=== PATIENT | female | born 1985 | race Caucasian/White ===

== ENCOUNTER 2023-11-09 14:39 | Emergency (ER) | payer OTHER ==
[2023-11-09 14:50] VITALS: BMI 23.8
[2023-11-09] MEDS: LACTATED RINGERS SOLUTION 1,000 ML IV SCH (15:30)
[2023-11-09] MEDS: ACETAMINOPHEN 1000 MG/100 ML BAG IVPB ONE (15:45)
[2023-11-09 16:23] LABS: EPI CELLS 36 /uL (0-25.1); HYALINE CASTS 3 /uL (0-3.1); URINE APPEARANCE CLOUDY; URINE BACTERIA >9,000 /uL (0-1359); URINE BILIRUBIN NEGATIVE (NEGATIVE); URINE COLOR YELLOW; URINE GLUCOSE (UA) NEGATIVE (NEGATIVE); URINE KETONE 1+ (NEGATIVE); URINE LEUK ESTERASE 3+ (NEGATIVE); URINE NITRITE POSITIVE (NEGATIVE); URINE PROTEIN 1+ (NEGATIVE); URINE RBC 36 /uL (0-23.9); URINE WBC 4000 /uL (0-25.8)
[2023-11-09 16:32] LABS: BASO % 0.1 % (0-2.0); EOS % 0.4 % (0-4.5); HEMATOCRIT 30.6 % (32.4-45.2); HEMOGLOBIN 10.5 GM/dL (10.7-15.3); LYMPH % 15.4 % (8-40); MCH 31.7 pg (25.7-33.7); MCHC 34.4 g/dl (32.0-36.0); MEAN CELL VOLUME 92.1 fl (80-96); MEAN PLT VOLUME 8.4 fl (7.5-11.1); MONO % 8.8 % (3.8-10.2); NEUT % 75.3 % (42.8-82.8); PLATELET COUNT 192 10^3/uL (134-434); RBC 3.33 M/mm3 (3.60-5.2); RDW 13.3 % (11.6-15.6); WHITE BLOOD COUNT 8.3 K/mm3 (4.0-10.0)
[2023-11-09] MEDS: CEFTRIAXONE 1 MG in DEXTROSE 5%-WATER - 50 ML IVPB ONE (16:52)
[2023-11-09 17:02] LABS: POTASSIUM 3.5 mmol/L (3.5-5.1)
[2023-11-09 17:03] LABS: CALCIUM 8.4 mg/dL (8.5-10.1)
[2023-11-09 17:04] LABS: BLOOD UREA NITROGEN 7.5 mg/dL (7-18)
[2023-11-09 17:07] LABS: CREATININE 0.4 mg/dL (0.55-1.3)
[2023-11-09] MEDS: CEFTRIAXONE 1 GM in DEXTROSE 5%-WATER - 50 ML IVPB ONE (17:20)
[2023-11-09 18:15] VITALS: BP 103/63; PULSE 64; RESP 16; TEMP 98.6
== END 2023-11-09 18:30 | disposition home or self-care (01) ==
LOC: JER 14:39 → JLDR 16:15 → JER 16:15
PROC: 3E03329 Introduction of Other Anti-infective into Peripheral Vein, Percutaneous Approach (ICD-10-PCS; principal; 2023-11-09)
PROC: 3E033NZ Introduction of Analgesics, Hypnotics, Sedatives into Peripheral Vein, Percutaneous Approach (ICD-10-PCS; 2023-11-09)
DX: O09.521 Supervision of elderly multigravida, first trimester (principal); O26.892 Other specified pregnancy related conditions, second trimester; R10.31 Right lower quadrant pain; O99.891 Other specified diseases and conditions complicating pregnancy; M54.50 Low back pain, unspecified; Z3A.22 22 weeks gestation of pregnancy
CPT/HCPCS: 36415; 80048; 81003; 85025; 87086; 87186; 99284-25; J0131

== ENCOUNTER 2024-02-12 06:25 | Inpatient (IN) | payer OTHER ==
[2024-02-12] MEDS ORDERED: AMPICILLIN SODIUM 2 GM VIAL ONE (07:24)
[2024-02-12] MEDS ORDERED: BETAMET ACET/BETAMET NA PH 30 MG/5 ML VIAL ONE (07:24)
[2024-02-12] MEDS: ELECTROLYTE-148 SOLN 500 ML IV ONE (07:35)
[2024-02-12] MEDS: AMPICILLIN - 2 GM in SODIUM CHLORIDE 100 ML IVPB SCH (07:40)
[2024-02-12 08:16] LABS: BASO % 0.3 % (0-2.0); EOS % 2.9 % (0-4.5); HEMATOCRIT 34.8 % (32.4-45.2); HEMOGLOBIN 11.6 GM/dL (10.7-15.3); LYMPH % 22.7 % (8-40); MCH 31.3 pg (25.7-33.7); MCHC 33.4 g/dl (32.0-36.0); MEAN CELL VOLUME 93.7 fl (80-96); MEAN PLT VOLUME 9.1 fl (7.5-11.1); MONO % 7.4 % (3.8-10.2); NEUT % 66.7 % (42.8-82.8); PLATELET COUNT 202 10^3/uL (134-434); RBC 3.72 M/mm3 (3.60-5.2); RDW 13.6 % (11.6-15.6); WHITE BLOOD COUNT 8.7 K/mm3 (4.0-10.0)
[2024-02-12 08:26] LABS: INR 1.04 (0.83-1.09); PROTHROMBIN TIME (PATIENT) 11.9 SEC (9.7-13.0)
[2024-02-12 08:38] LABS: POTASSIUM 3.9 mmol/L (3.5-5.1)
[2024-02-12 08:39] LABS: BLOOD UREA NITROGEN 10.6 mg/dL (7-18); CALCIUM 8.4 mg/dL (8.5-10.1)
[2024-02-12 08:43] LABS: CREATININE 0.5 mg/dL (0.55-1.3)
[2024-02-12] MEDS: ELECTROLYTE-148 SOLN 1,000 ML IV SCH (09:00)
[2024-02-12 09:52] VITALS: BMI 27.2
[2024-02-12] MEDS: BETAMET ACET/BETAMET NA PH 30 MG/5 ML VIAL IM SCH (10:28)
[2024-02-12] MEDS ORDERED: AMPICILLIN SODIUM 1 GM VIAL ONE (12:17)
[2024-02-12 12:19] LABS: HIV INTERPRETATION NEGATIVE (NEGATIVE)
[2024-02-12] MEDS: AMPICILLIN - 1 GM in SODIUM CHLORIDE 100 ML IVPB SCH (12:23)
[2024-02-12 12:34] LABS: COCAINE, UR NEGATIVE (NEGATIVE); METHADONE, UR NEGATIVE (NEGATIVE); URINE BARBITURATES NEGATIVE (NEGATIVE); URINE BENZODIAZEPINES NEGATIVE (NEGATIVE)
[2024-02-12 12:36] LABS: PHENCYCLIDINE,URINE NEGATIVE (NEGATIVE)
[2024-02-12 12:43] LABS: OPIATES, URI NEGATIVE (NEGATIVE); URINE AMPHETAMINES NEGATIVE (NEGATIVE)
[2024-02-12] MEDS: CITRIC ACID/SODIUM CITRATE 30 ML UNIT-DOSE CUP PO ONE (13:00)
[2024-02-12] MEDS ORDERED: LIGASURE IMPACT TP ONE (13:45)
[2024-02-12] MEDS ORDERED: FENTANYL CITRATE/PF 50 MCG/ML VIAL ONE (13:52)
[2024-02-12] MEDS ORDERED: morphine SULFATE/PF 1 MG/2 ML (2cc Syringe - QUVA) ONE (13:52)
[2024-02-12] MEDS ORDERED: DEXAMETHASONE SOD PHOSPHATE 4 MG/1 ML VIAL ONE (13:57)
[2024-02-12] MEDS ORDERED: ceFAZolin SODIUM 1 GM VIAL ONE (13:57)
[2024-02-12] MEDS ORDERED: OXYTOCIN 10 UNITS/ML VIAL ONE (13:57)
[2024-02-12] MEDS ORDERED: ONDANSETRON 4 MG/2 ML VIAL ONE (13:57)
[2024-02-12] MEDS ORDERED: ONDANSETRON 4 MG/2 ML VIAL IVPUSH PRN (14:05)
[2024-02-12] MEDS ORDERED: OXYTOCIN 20 UNITS in 0.9% NS 20 UNIT/1,000 ML INFUS.BAG IV ONE ×2 (14:14→17:29)
[2024-02-12] MEDS ORDERED: METHYLERGONOVINE MALEATE 0.2 MG/1 ML AMP IM PRN (15:15)
[2024-02-12 15:27] LABS: CORD HCO3 21.4 mmHg (20-29); CORD PCO2 48.4 mmHg (30-78); CORD pH 7.264 (7.14-7.44)
[2024-02-12 15:29] LABS: CORD BASE EXCESS -5.2 mmol/L (0-2); CORD HCO3 19.8 mmHg (20-29); CORD PCO2 36.8 mmHg (30-78); CORD pH 7.348 (7.14-7.44)
[2024-02-12] MEDS ORDERED: ACETAMINOPHEN INJECTION 100 ML ONE (16:44)
[2024-02-12] MEDS: ACETAMINOPHEN 1000 MG/100 ML BAG IVPB PRN (16:56)
[2024-02-12] MEDS: OXYTOCIN 20 UNITS in 0.9% NS 20 UNIT/1,000 ML INFUS.BAG IV SCH (16:58)
[2024-02-12] MEDS: CEFAZOLIN SODIUM 2 GM in DEXTROSE 5%-WATER 100 ML IVPB SCH ×2 (18:00→22:00)
[2024-02-12] MEDS: IBUPROFEN 800 MG/8 ML IJ IVPB PRN (18:14)
[2024-02-13 05:55] VITALS: RESP 18
[2024-02-13 07:26] LABS: BASO % 0.1 % (0-2.0); HEMATOCRIT 34.5 % (32.4-45.2); HEMOGLOBIN 11.3 GM/dL (10.7-15.3); LYMPH % 11.6 % (8-40); MCHC 32.9 g/dl (32.0-36.0); MEAN CELL VOLUME 94.3 fl (80-96); MEAN PLT VOLUME 9.9 fl (7.5-11.1); MONO % 5.4 % (3.8-10.2); NEUT % 82.9 % (42.8-82.8); PLATELET COUNT 210 10^3/uL (134-434); RBC 3.66 M/mm3 (3.60-5.2); RDW 13.5 % (11.6-15.6); WHITE BLOOD COUNT 15.7 K/mm3 (4.0-10.0)
[2024-02-13] MEDS: ENOXAPARIN NA (PORCINE) 40 MG/0.4 ML DISP.SYRIN SQ SCH (09:02)
[2024-02-13] MEDS: CEFAZOLIN 2 GM/D5W 2 GM/50 ML ML IVPB SCH (14:23)
[2024-02-13] MEDS ORDERED: BISACODYL 10 MG SUPP.RECT RC PRN (15:15)
[2024-02-13] MEDS: oxyCODONE HCL 5 MG TABLET PO PRN ×2 (18:11→23:18)
[2024-02-13] MEDS: SIMETHICONE 80 MG TAB.CHEW (FP) PO PRN (18:11)
[2024-02-13] MEDS: IBUPROFEN 600 MG TABLET (FP) PO PRN (20:51)
[2024-02-15 07:31] LABS: BASO % 0.2 % (0-2.0); EOS % 0.6 % (0-4.5); HEMATOCRIT 31.8 % (32.4-45.2); HEMOGLOBIN 10.5 GM/dL (10.7-15.3); LYMPH % 27.1 % (8-40); MCH 31.4 pg (25.7-33.7); MCHC 33.1 g/dl (32.0-36.0); MEAN CELL VOLUME 94.8 fl (80-96); MEAN PLT VOLUME 9.1 fl (7.5-11.1); MONO % 6.1 % (3.8-10.2); PLATELET COUNT 212 10^3/uL (134-434); RBC 3.35 M/mm3 (3.60-5.2); RDW 13.9 % (11.6-15.6); WHITE BLOOD COUNT 9.8 K/mm3 (4.0-10.0)
[2024-02-15] MEDS: ACETAMINOPHEN 325 MG TABLET (FP) PO PRN (17:20)
[2024-02-16 08:41] VITALS: BP 107/69; PULSE 61; TEMP 98.3
== END 2024-02-16 12:48 | disposition home or self-care (01) | DRG 540 ==
LOC: JDEL 06:25 → JLDR 06:42 → J3W 17:36
PROVIDERS: ADMIT Obstetrics & Gynecology; ATTEND Obstetrics & Gynecology
PROC: 10D00Z1 Extraction of Products of Conception, Low, Open Approach (ICD-10-PCS; principal; 2024-02-12)
PROC: 0UB70ZZ Excision of Bilateral Fallopian Tubes, Open Approach (ICD-10-PCS; 2024-02-12)
DX: O34.211 Maternal care for low transverse scar from previous cesarean delivery (principal); N85.8 Other specified noninflammatory disorders of uterus; O42.913 Preterm premature rupture of membranes, unspecified as to length of time between rupture and onset of labor, third trimester; O60.14X0 Preterm labor third trimester with preterm delivery third trimester, not applicable or unspecified; Z3A.35 35 weeks gestation of pregnancy; Z30.2 Encounter for sterilization; Z37.0 Single live birth
CPT/HCPCS: 36415; 36600; 59409; 80048; 80307; 82803; 85025; 85610; 85730; 86780; 86850; 86900; 86901; 87081; 87389; 88305-TC; 88307-TC; 96372; J0131